=== PATIENT | male | born 1970 | race African-American/Black ===

== ENCOUNTER 2017-09-13 01:17 | Emergency (ER) | payer BC, MEDICAID ==
[~2017-09-13] VITALS: Ht 177.8 cm; Wt 90.7 kg
--- NOTE | 2017-09-13 01:45 | NUR ---
BIBSELF C/O SOB SINCE YESTERDAY AFTERNOON AND HEADACHE X 4 DAYS. UPON AUSCULTATION HEARD CLEAR LUNG SOUNDS. PT HAS HX OF HYPERTENSION AND IS HYPERTENSIVE RIGHT NOW WITH SBP 150'S. WILL CONTINUE TO MONITOR FOR ANY CHANGES DURING THE SHIFT.
[2017-09-13] MEDS ORDERED: ASPIRIN 81 MG TAB.CHEW PO ONE (02:00)
[2017-09-13] MEDS ORDERED: NITROGLYCERIN 0.4 MG/TAB BOTTLE SL ONE (02:00)
[2017-09-13] MEDS ORDERED: NITROGLYCERIN PACKET 1 GM PACKET TD ONE (02:00)
--- NOTE | 2017-09-13 02:08 | NUR ---
EKG AT BEDSIDE
--- NOTE | 2017-09-13 02:10 | NUR ---
[employer] AT BEDSIDE
[2017-09-13] MEDS ORDERED: ASPIRIN 81 MG TAB.CHEW ONE (02:13)
[2017-09-13] MEDS ORDERED: NITROGLYCERIN PACKET 1 GM PACKET ONE (02:13)
[2017-09-13] MEDS ORDERED: NITROGLYCERIN 0.4 MG/TAB BOTTLE ONE (02:13)
[2017-09-13 02:30] LABS: BASOPHILS % (AUTO) 0.5 % (0.0-2.0); EOSINOPHILS % (AUTO) 1.9 % (0.0-6.0); HEMATOCRIT 42 % (39-51); HEMOGLOBIN 13.8 g/dL (13.5-17.5); LYMPHOCYTES # (AUTO) 2.8 /CMM (0.8-4.8); LYMPHOCYTES % (AUTO) 38.3 % (20.0-44.0); MEAN CORPUSCULAR HGB CONC 33 g/dl (31.0-36.0); MEAN CORPUSCULAR VOLUME 80 fL (80-96); MONOCYTES # (AUTO) 0.6 /CMM (0.1-1.30); MONOCYTES % (AUTO) 7.9 % (2.0-12.0); NEUTROPHILS # (AUTO) 3.7 /CMM (1.8-8.9); NEUTROPHILS % (AUTO) 51.4 % (43.0-81.0); PLATELET COUNT (AUTO) 203 /CMM (150-450); RED BLOOD CELL COUNT(AUTO) 5.31 MIL/uL (4.5-6.0); WHITE BLOOD COUNT (AUTO) 7.3 K/uL (4.3-11.0)
[2017-09-13 02:35] LABS: CALCIUM, SERUM 8.4 mg/dL (8.5-10.1); CARBON DIOXIDE 25 mmol/L (21-32); CHLORIDE 105 mmol/L (98-107); CREATININE 1.2 mg/dL (0.6-1.3); GLUCOSE 137 mg/dL (74-106); POTASSIUM 3.5 mmol/L (3.5-5.1); SODIUM SERUM 140 mmol/L (136-145); UREA NITROGEN, BLOOD 12 mg/dL (7-18)
[2017-09-13 02:42] LABS: TROPONIN I < 0.017 ng/mL (0.00-0.056)
[2017-09-13 02:47] LABS: ALANINE AMINOTRANSFERASE 21 U/L (12-78); ALBUMIN 3.3 g/dL (3.4-5.0); ALKALINE PHOSPHATASE 67 U/L (46-116); ASPARTATE AMINOTRANSFERASE 18 U/L (15-37); B-TYPE NATRIURETIC PEPTIDE 5 PG/ML (0-125); BILIRUBIN,DIRECT 0.1 mg/dL (0.0-0.2); BILIRUBIN,TOTAL 0.4 mg/dL (0.2-1.0); TOTAL PROTEIN, SERUM 7.2 g/dL (6.4-8.2)
--- NOTE | 2017-09-13 04:55 | NUR ---
LAB AT BEDSIDE
[2017-09-13 05:40] VITALS: BP 148/111
== END 2017-09-13 05:41 | disposition home or self-care (01) ==
LOC: ER 01:18
DX: R07.89 Other chest pain (principal); R06.00 Dyspnea, unspecified; I10 Essential (primary) hypertension; J45.909 Unspecified asthma, uncomplicated; F17.200 Nicotine dependence, unspecified, uncomplicated; Z60.2 Problems related to living alone
CPT/HCPCS: 36415; 71045-TC; 80048-TC; 80076-TC; 83880; 84484-TC; 85025-TC; A4606; Z7610